=== PATIENT | female | born 1995 | race Caucasian/White ===

== ENCOUNTER → 2018-09-20 | Outpatient (CLI) | payer BC ==
--- NOTE | 2018-09-20 07:58 | CT ---
EXAMINATION TYPE: CT brain wo con DATE OF EXAM: 09/20/2018 COMPARISON: None. HISTORY: Frequent migraines. Strong family history of MS CT DLP: 945.5 mGycm. Automated Exposure Control for Dose Reduction was Utilized. TECHNIQUE: CT scan of the head is performed without contrast. FINDINGS: There is no acute intracranial hemorrhage, mass effect, or midline shift identified. The ventricles and sulci are within normal limits in size. Velarde-white matter differentiation is maintain ed. Craniocervical junction is preserved. There is partial visualization of opacified superior left m axillary sinus. There is opacity filling the anterior left ethmoid sinus. Remainder paranasal sinuses are clear. The globes are intact bilaterally. IMPRESSION: No acute intracranial hemorrhage or midline shift is seen. Acute left-sided sinus diseas e, correlate clinically.
== END | disposition home or self-care (01) ==
LOC: RADCTMAIN 07:25
PROVIDERS: ATTEND Family Medicine
DX: R51 Headache (principal)
CPT/HCPCS: 70450

== ENCOUNTER 2019-10-05 11:22 | Inpatient (IN) | payer BC ==
[2019-10-06] MEDS: LACTATED RINGERS 1,000 ML IV SCH ×3 (00:47→04:06)
[2019-10-06] MEDS ORDERED: OXYTOCIN 10 UNIT/ML 1 ML VIAL IM PRN (00:48)
[2019-10-06] MEDS ORDERED: TERBUTALINE 1 MG/ML VIAL SQ PRN (00:48)
[2019-10-06] MEDS ORDERED: METHYLERGONOVINE 0.2 MG/ML 1 ML AMP IM PRN (00:48)
[2019-10-06] MEDS ORDERED: CARBOPROST TROMETHAMINE 250 MCG/ML 1 ML AMP IM PRN (00:48)
[2019-10-06] MEDS ORDERED: LIDOCAINE 0.5% (PF) 5 MG/ML (50 ML SDV) SQ PRN (00:48)
[2019-10-06] MEDS ORDERED: PENICILLIN G POTASSIUM 5,000,000 UNIT in DEXTROSE 5% IN WATER 100 ML IVPB STA ×2 (00:48)
--- NOTE | 2019-10-06 00:54 | P.HPOB ---
History of Present Illness H&P Date: 10/06/19 Chief Complaint: IUP at 38 and 3/sevenths weeks, labor, spontaneous rupture of membranes This is a 24-year-old 1 para 0 at 38 and 3/sevenths weeks with an estimated due date of 10/14 based on last menstrual period that presents to labor and delivery with complaints of regular painful contractions, question leakage of fluid. Patient states she started lavelle around 2200. Patient noted some mucousy like discharge was concerned her water may have broken. Patient was a transfer of care from Dr. Damon at 35 weeks. care has been essentially uncomplicated. Patient notes good movement. On bloodwork patient has a blood type of O+, rubella status immune, RPR nonreactive, hepatitis B surface antigen negative, HIV negative, GBS is positive on 09/17. Review of Systems Constitutional: Denies chills, Denies fatigue, Denies fever Ears, nose, mouth and throat: Denies headache Cardiovascular: Denies leg edema Respiratory: Denies dyspnea Gastrointestinal: Denies constipation, Denies diarrhea, Denies nausea, Denies vomiting Genitourinary: Reports Exam Osteopathic Statement: *. No significant issues noted on an osteopathic structural exam other than those noted in the History and Physical/Consult. Targeted physical exam is performed in this date and household assistant a well-nourished well-developed female in no acute distress, breathing is noted to be nonlabored, heart has regular rate and rhythm, abdomen is gravid and appropriate for gestational age, heart tones returned be category 1 and she is lavelle every 5 minutes. Patient was known to be positive by RN, cervix after 1 hour of observation was noted to be 4/100/-1 station. Assessment and Plan (1) Term Current Visit: Yes Status: Acute Code(s): Z34.90 - ENCNTR FOR SUPRVSN OF NORMAL , UNSP, UNSP TRIMESTER SNOMED Code(s): 33567943 (2) Positive GBS test Current Visit: Yes Status: Acute Code(s): B95.1 - STREPTOCOCCUS, GROUP B, CAUSING DISEASES CLASSD ELSWHR SNOMED Code(s): 691593118 (3) Active labor Current Visit: Yes Status: Acute Code(s): YKP1437 - SNOMED Code(s): 832143743 (4) SROM (spontaneous rupture of membranes) Current Visit: Yes Status: Acute Code(s): GCT3847 - SNOMED Code(s): 051139486 Plan: This 24-year-old 1 para 0 at 38-3/7 weeks presents to labor and delivery with complaints of contractions and questionable rest para membranes. Patient is noted to be ruptured based on in nature. Patient is admitted to labor and delivery and is requesting epidural placement. Anesthesia has been notified. We'll monitor closely.
[2019-10-06] MEDS ORDERED: fentaNYL (PF) 50 MCG/ML 5 ML AMP ONE (01:00)
[2019-10-06] MEDS ORDERED: ROPIVACAINE 5MG/ML 20ML VIAL ONE (01:00)
[2019-10-06] MEDS ORDERED: SODIUM CHLORIDE 0.9% 100 ML BAG ONE (01:00)
[2019-10-06 01:06] LABS: Basophils % (A) 0 %; Eosinophils # (A) 0.2 k/uL (0-0.7); Eosinophils % (A) 1 %; HCT 43.2 % (34.0-46.0); HGB 14.8 gm/dL (11.4-16.0); Lymphocytes # (A) 2.6 k/uL (1.0-4.8); Lymphocytes % (A) 18 %; MCH 29.3 pg (25.0-35.0); MCHC 34.3 g/dL (31.0-37.0); MCV 85.5 fL (80.0-100.0); Mean Platelet Volume 8.5; Monocytes # (A) 0.7 k/uL (0-1.0); Monocytes % (A) 5 %; Neutrophils # (A) 10.7 k/uL (1.3-7.7); Neutrophils % (A) 75 %; Platelet Count 238 k/uL (150-450); RBC 5.06 m/uL (3.80-5.40); RDW 13.1 % (11.5-15.5); WBC 14.3 k/uL (3.8-10.6)
[2019-10-06] MEDS: PENICILLIN G POTASSIUM 2,500,000 UNIT in DEXTROSE 5% IN WATER 100 ML IVPB SCH ×4 (05:00→08:11)
[2019-10-06] MEDS ORDERED: ACETAMINOPHEN 40 MG/1.25 ML ORAL.SYRG PO PRN (07:25)
[2019-10-06] MEDS ORDERED: LIDOCAINE (PF) 10 MG/ML 2 ML VIAL SQ PRN (07:25)
[2019-10-06] MEDS ORDERED: SUCROSE 24% 2 ML AMP PO PRN (07:25)
--- NOTE | 2019-10-06 07:25 | P.PROBDLV ---
Vaginal Delivery Note - . Vaginal Delivery Note: This is a 24-year-old white female 1 para 0 EDC 10/16/2019 38-4/7 weeks' gestation. Patient presented to labor and delivery through the night in spontaneous active labor. has been unremarkable, positive group B strep cultures noted. Blood type O+. Please see dictated history and physical for details. Artificial amniorrhexis revealed clear fluid. Epidural was placed per her request. She progressed well through the first stage of labor and became completely dilated at 0620 hours. 2 doses of penicillin G had been received for penicillin G prophylaxis. Perineal body is prepped and draped in usual sterile fashion. With excellent maternal expulsive Efforts the infant's head delivered occiput anterior and restituted accordingly. There was no nuchal cord noted. The left or anterior shoulder was delivered from underneath the pubic symphysis at which time the oropharynx, nasopharynx, and external nares were all bulb suctioned on the perineum. Patient was officially delivered of a liveborn male infant at 0706 hrs. Umbilical cord is doubly clamped and ligated, he is handed to waiting nurses for evaluation where scores of 9 and 9 at one and 5 minutes respectively were given. Placenta delivers spontaneously, it is inspected and noted to be intact with trivascular cord at 0708 hrs. At this time the uterus is massaged. Careful inspection of the cervix, vagina, perineum, periurethral, and perirectal areas reveals a small first-degree midline laceration repaired in the usual fashion with a single [id number] suture of 3.0 Vicryl suture. Uterus is firm, midline, symmetric, 18 week size. All sponge needle and enhancement counts are correct at the end of the procedure. Patient is requesting circumcision for her son. Total estimated blood loss 250 mL's.
[2019-10-06] MEDS ORDERED: LANOLIN CREAM 5 GM TUBE TOPICAL PRN (07:28)
[2019-10-06] MEDS ORDERED: BENZOCAINE/MENTHOL SPRAY 1 GM/SPRAY AEROSOL TOPICAL PRN (07:28)
[2019-10-06] MEDS ORDERED: SIMETHICONE 80 MG CHEWABLE PO PRN (07:28)
[2019-10-06] MEDS ORDERED: diphenhydrAMINE 50 MG CAP PO PRN (07:28)
[2019-10-06] MEDS ORDERED: ZOLPIDEM 5 MG TAB PO PRN (07:28)
[2019-10-06] MEDS ORDERED: HYDROCORTISONE 2.5% RECTAL CREAM 30 GM TUBE RECTAL PRN (07:28)
[2019-10-06] MEDS ORDERED: IBUPROFEN 600 MG TAB PO PRN (07:28)
[2019-10-06] MEDS ORDERED: diphenhydrAMINE 25 MG CAP PO PRN (07:28)
[2019-10-06] MEDS ORDERED: diphenhydrAMINE 50 MG/ML 1 ML VIAL IVP PRN ×2 (07:28)
[2019-10-06] MEDS ORDERED: OXYTOCIN 20 UNITS/1000 ML NS 1,000 ML IV SCH (07:30)
[2019-10-06] MEDS: SENNOSIDES-DOCUSATE SODIUM 1 EACH TAB PO SCH ×2 (08:11→19:42)
[2019-10-06] MEDS: ACETAMINOPHEN TAB 325 MG TAB PO PRN ×2 (09:47→19:38)
[2019-10-07 06:27] LABS: Basophils % (A) 0 %; Eosinophils # (A) 0.2 k/uL (0-0.7); Eosinophils % (A) 1 %; HCT 39.3 % (34.0-46.0); HGB 13.7 gm/dL (11.4-16.0); Lymphocytes # (A) 2.7 k/uL (1.0-4.8); Lymphocytes % (A) 23 %; MCHC 34.8 g/dL (31.0-37.0); MCV 86.3 fL (80.0-100.0); Mean Platelet Volume 8.3; Monocytes # (A) 0.5 k/uL (0-1.0); Monocytes % (A) 4 %; Neutrophils # (A) 8.3 k/uL (1.3-7.7); Neutrophils % (A) 70 %; Platelet Count 184 k/uL (150-450); RBC 4.56 m/uL (3.80-5.40); RDW 13.3 % (11.5-15.5); WBC 11.8 k/uL (3.8-10.6)
[2019-10-07 08:23] VITALS: BP 117/76; PULSE 75; RESP 14; TEMP 98.7
[2019-10-07] MEDS: SENNOSIDES-DOCUSATE SODIUM 1 EACH TAB PO SCH (08:25)
--- NOTE | 2019-10-07 10:46 | P.DS ---
Providers Date of admission: 10/06/19 00:25 Expected date of discharge: 10/07/19 Attending physician: Pao Yang Primary care physician: Stated None - Discharge Diagnosis(es) (1) Active labor Current Visit: Yes Status: Acute (2) Positive GBS test Current Visit: Yes Status: Acute (3) SROM (spontaneous rupture of membranes) Current Visit: Yes Status: Acute (4) Term Current Visit: Yes Status: Acute (5) Normal spontaneous vaginal delivery Current Visit: Yes Status: Acute (6) Perineal laceration with delivery, first degree Current Visit: Yes Status: Acute Hospital Course: This is a 24-year-old 1 now para 1 woman who presented at 38-4/7 weeks gestation in spontaneous active labor. She is group B strep positive and received prophylactic antibiotics. She underwent artificial rupture of me mbranes and received an epidural anesthetic. She went on to deliver a liveborn male infant over a first 3 perineal laceration with Apgars of 9 at 1 minute and 9 at 5 minutes. The patient's course was unremarkable. By day #1 she was ambulating and voiding without difficulty. Her lochia was moderate. Her pain was well-controlled. She is tolerating a general diet and her vital signs were stable. She was therefore discharged home in routine instructions for care and follow-up. Patient Condition at Discharge: Good Plan - Discharge Summary New Discharge Prescriptions: No Action No Known Home Medications Discharge Medication List No Known Home Medications 10/06/19 [History] Follow up Appointment(s)/Referral(s): Pao Yang MD [STAFF PHYSICIAN] - 6 Weeks Activity/Diet/Wound Care/Special Instructions: Follow-up in the office in 6 weeks . Call with any concerning signs or symptoms including heavy vaginal bleeding, severe abdominal pain, fever greater than 101, swelling or redness of the lower extremities, foul vaginal discharge, or signs of depression. Nothing in the vagina for 6 weeks after delivery, specifically no intercourse. May use [id number] ibuprofen and/or Tylenol as needed for pain Discharge Disposition: HOME SELF-CARE
== END 2019-10-07 12:30 | disposition home or self-care (01) | DRG 807 ==
LOC: FBPOP 11:22 → 4FBP 10-06 00:25
PROVIDERS: ADMIT Obstetrics & Gynecology Obstetrics; ATTEND Obstetrics & Gynecology
PROC: 3E0R3BZ Introduction of Anesthetic Agent into Spinal Canal, Percutaneous Approach (ICD-10-PCS; principal; 2019-10-06)
PROC: 00HU33Z Insertion of Infusion Device into Spinal Canal, Percutaneous Approach (ICD-10-PCS; principal; 2019-10-06)
PROC: 10E0XZZ Delivery of Products of Conception, External Approach (ICD-10-PCS; principal; 2019-10-06)
PROC: 0HQ9XZZ Repair Perineum Skin, External Approach (ICD-10-PCS; principal; 2019-10-06)
DX: O99.824 Streptococcus B carrier state complicating childbirth (principal); Z37.0 Single live birth; Z3A.38 38 weeks gestation of pregnancy; O70.0 First degree perineal laceration during delivery
CPT/HCPCS: 59025; 84112; 85025; 86850; 86900; 86901; 99213

== ENCOUNTER 2020-09-10 08:50 | Inpatient (IN) | payer BC ==
[2020-09-10] MEDS ORDERED: METHYLERGONOVINE 0.2 MG/ML 1 ML AMP IM PRN (09:08)
[2020-09-10] MEDS ORDERED: TERBUTALINE 1 MG/ML VIAL SQ PRN (09:08)
[2020-09-10] MEDS ORDERED: PENICILLIN G POTASSIUM 5,000,000 UNIT in DEXTROSE 5% IN WATER 100 ML IVPB STA ×2 (09:08)
[2020-09-10] MEDS ORDERED: LIDOCAINE 0.5% (PF) 5 MG/ML (50 ML SDV) SQ PRN (09:08)
[2020-09-10] MEDS ORDERED: CARBOPROST TROMETHAMINE 250 MCG/ML 1 ML AMP IM PRN (09:08)
[2020-09-10] MEDS ORDERED: OXYTOCIN 10 UNIT/ML 1 ML VIAL IM PRN (09:08)
[2020-09-10] MEDS ORDERED: OXYTOCIN 30 UNITS/500 ML NS 30 UNIT in SALINE 1 500ML.BAG IV SCH (09:15)
[2020-09-10] MEDS: LACTATED RINGERS 1,000 ML IV SCH ×2 (09:29→16:01)
[2020-09-10 09:55] LABS: Basophils % (A) 0 %; Eosinophils # (A) 0.2 k/uL (0-0.7); Eosinophils % (A) 2 %; HCT 36.6 % (34.0-46.0); HGB 12.9 gm/dL (11.4-16.0); Lymphocytes # (A) 2.3 k/uL (1.0-4.8); Lymphocytes % (A) 21 %; MCH 28.6 pg (25.0-35.0); MCHC 35.3 g/dL (31.0-37.0); MCV 80.9 fL (80.0-100.0); Mean Platelet Volume 7.7; Monocytes # (A) 0.7 k/uL (0-1.0); Monocytes % (A) 7 %; Neutrophils # (A) 7.6 k/uL (1.3-7.7); Neutrophils % (A) 70 %; Platelet Count 243 k/uL (150-450); Poikilocytosis Slight; RBC 4.53 m/uL (3.80-5.40); RDW 11.9 % (11.5-15.5); WBC 10.9 k/uL (3.8-10.6)
--- NOTE | 2020-09-10 10:01 | P.HPOB ---
History of Present Illness H&P Date: 09/10/20 This is a 25-year-old female 2 para 1001 EDC 10/08/2020 at 36 weeks' gestation. Patient presents after being in the office, reporting that her water broke last night at 10:00, clear fluid. She is having no uterine contractions. Spontaneous amniorrhexis was confirmed in the office with positive nitrazine, positive pooling, positive ferning. Past obstetric history significant for blood type O positive, rubella status immune. Urine culture, hepatitis B surface antigen, HIV testing, gonorrhea and chlamydia cultures all negative. One-hour Glucola 86. Rupee strep cultures not done. Past medical history is essentially negative. Past surgical history eye muscle surgery at age 3. Current medications vitamins daily. ALLERGIES none known, ALLERGIES to eggs cinnamon is noted. Family history significant for hypertension, epilepsy, MS. Social history patient is single, she works for [email or web address], she denies alcohol tobacco or drug use. On exam patient is 5 foot 1 inch, 160 pounds, blood pressure on admission 132/69. General physical exam is within normal limits. Chest is clear in all wilder. Cervix at office was 2 cm dilated, 50%, -2 station, vertex presentation, soft, anterior. heart rate is consistent with reactive NST. Impression: 36 week intrauterine , spontaneous amniorrhexis last night, not in labor. Group B strep culture status unknown. Plan: We will begin penicillin G prophylaxis. Oxytocin augmentation per hospital protocol. Close maternal and surveillance. Anticipate normal spontaneous vaginal delivery. Review of Systems Constitutional: Reports as per HPI Past Medical History Past Medical History: No Reported History Additional Past Medical History / Comment(s): UTIs History of Any Multi-Drug Resistant Organisms: None Reported Additional Past Surgical History / Comment(s): Eye surgery at 3 years old Past Anesthesia/Blood Transfusion Reactions: No Reported Reaction Past Psychological History: Anxiety Smoking Status: Never smoker Past Alcohol Use History: None Reported Past Drug Use History: None Reported - Past Family History Sister(s) Family Medical History: Neurologic Disorder, Seizure Disorder Additional Family Medical History / Comment(s): spinabifida Mother Family Medical History: Musculoskeletal Disorder Medications and Allergies Home Medications Medication Instructions Recorded Confirmed Type Pnv 11/Iron Fum/Folic Acid/Om3 1 each PO DAILY 09/10/20 09/10/20 History [Virt-Eddie Dha Softgel] Allergies Allergy/AdvReac Type Severity Reaction Status Date / Time cinnamon Allergy Anaphylaxis Verified 10/06/19 00:52 egg AdvReac Itching Verified 10/06/19 00:52 Exam Vital Signs Temp Pulse Resp BP Pulse Ox 09/10/20 09:06 99.5 F 101 H 18 132/69 100 Intake and Output 09/09/20 09/10/20 09/10/20 22:59 06:59 14:59 Other: Weight 72.575 kg See dictation under HPI please Results Result Diagrams: 09/10/20 09:29 Abnormal Lab Results - Last 24 Hours (Table) 09/10/20 Range/Units 09:29 WBC 10.9 H (3.8-10.6) k/uL Assessment and Plan Assessment: 36 weeks intrauterine , spontaneous amniorrhexis last night, not in active labor. Group B strep cultures unknown. Others otherwise signs reassuring. Plan: Penicillin G prophylaxis per protocol. First dose given. Oxytocin augmentation per hospital protocol. Continue close maternal and surveillance. Anticipate normal spontaneous vaginal delivery. Time with Patient: Less than 30
[2020-09-10] MEDS: PENICILLIN G POTASSIUM 2,500,000 UNIT in DEXTROSE 5% IN WATER 100 ML IVPB SCH ×6 (13:49→21:16)
[2020-09-10] MEDS ORDERED: SODIUM CHLORIDE 0.9% 100 ML BAG ONE ×2 (15:39→21:54)
[2020-09-10] MEDS ORDERED: ROPIVACAINE 5MG/ML 20ML VIAL ONE (15:39)
[2020-09-10] MEDS ORDERED: fentaNYL (PF) 50 MCG/ML 5 ML AMP ONE (15:39)
[2020-09-10] MEDS ORDERED: HYDROmorphone (PF) 1 MG/ML ONE (21:54)
[2020-09-10] MEDS ORDERED: MORPHINE SULFATE (PF) 0.3 MG/0.3 ML SYR ONE (21:54)
[2020-09-10] MEDS ORDERED: KETOROLAC 15 MG/ML 1 ML VIAL ONE (21:54)
[2020-09-10] MEDS ORDERED: ceFAZolin 1,000 MG VIAL ONE (21:54)
[2020-09-10] MEDS ORDERED: ONDANSETRON 4 MG/2 ML VIAL ONE (21:54)
[2020-09-10] MEDS ORDERED: diphenhydrAMINE 25 MG CAP PO PRN (22:46)
[2020-09-10] MEDS ORDERED: diphenhydrAMINE 50 MG/ML 1 ML VIAL IVP PRN ×2 (22:46)
[2020-09-10] MEDS ORDERED: METOCLOPRAMIDE 5 MG/ML 2 ML VIAL IVP PRN (22:46)
[2020-09-10] MEDS ORDERED: diphenhydrAMINE 50 MG CAP PO PRN (22:46)
[2020-09-10] MEDS ORDERED: ZOLPIDEM 5 MG TAB PO PRN (22:46)
[2020-09-10] MEDS ORDERED: NALOXONE 0.4 MG/ML 1 ML VIAL IV PRN (22:46)
[2020-09-10] MEDS ORDERED: ONDANSETRON 4 MG/2 ML VIAL IVP PRN (22:46)
--- NOTE | 2020-09-10 22:46 | P.OP ---
Date of Procedure: 09/10/20 Preoperative Diagnosis: 36 week , arrest of dilation and descent. Prolonged rupture of membranes, development of tachycardia. Undesired fertility Postoperative Diagnosis: Liveborn female infant, left occiput transverse position, nuchal cord 2. Procedure(s) Performed: Primary low transverse section, tubal ligation with Filshie clips Anesthesia: epidural Surgeon: Pao Yang [employer] #1: [employer] Estimated Blood Loss (ml): 500 IV fluids (ml): 800 Urine output (ml): 200 Pathology: other (Placenta) Condition: stable Disposition: PACU Description of Procedure: Patient presented to the office in the morning with history of spontaneous rupture membranes the night before. Fluid was noted to be clear. Cervix 2 cm dilated. She was sent to labor and delivery where oxytocin was started and titrated, up to 21 milliunits. Arrestive dilation occurred at 5 cm, maternal fever occurred and subsequent tachycardia. Decision was made to proceed with primary low transverse section. Patient's request for tubal ligation was noted. Patient is brought to the operating room where the epidural previously placed was topped off. 2 g of Kefzol are given. She is placed in the dorsal supine position with left lateral uterine displacement. Marsh catheter placed to direct drainage, vaginal prep was performed. The appropriate timeout was also done to assure proper patient and procedural identification. The abdomen is prepped and draped in usual sterile fashion. Analgesia is checked and noted to be adequate. A low transverse skin incision is made in this is carried down through the subcutaneous tissue to the fascia. Fascia is isolated, scored, extended bilaterally with curved Gates scissors. Peritoneum is next identified and incised, there is no bowel or bladder involvement. Bladder flap is created and at all times the bladder is Well from the operative field to avoid bladder and/or ureteral injury. A low transverse uterine incision is made in this is extended bluntly. 's head is delivered in the occiput transverse position. There is a nuchal cord 2 that was tight and reduced. Patient is officially delivered of a liveborn femal e infant at 2210 hours. Umbilical cord is doubly clamped and ligated, she is handed to waiting nurses for evaluation where scores of 6 and 8 at one and 5 minutes respectively are given. Placentas delivered manually, it is inspected and noted to be intact with trivascular cord at 2210 hours. The uterus is then externalized and massaged. It is swept clean with a sterile sponge to avoid any retained products of conception. It is closed in a single full-thickness stitch of 0 Vicryl suture. Excellent hemostasis is noted. Patient's request for tubal ligation is once again confirmed. Filshie clips are placed in the isthmic portion of the tubes bilaterally with care to traverse the entire diameter of the tubes into the mesal salpinx. Imbricated ends of the tubes are visualized for proper placement. Ovaries appear normal. Abdomen is now suctioned with suction on guard posterior to the uterus. Uterus is gently placed back into the abdominal cavity. Bilateral gutters are inspected and cleaned. Bladder flap was allowed to close by secondary intention. Uterine incision is clean and dry. Fascia is closed in a running stitch of 0 Vicryl with over ligation in the midline. Subcutaneous tissue is irrigated, clean and dry. It is reapproximated with 3-0 Vicryl in a running stitch. 4-0 undyed Vicryl issues for final skin closure. All sponge needle and enhancement counts are correct. The incision is dressed properly. Marsh is noted to be draining clear urine. Patient is brought back to recovery room in very good condition with stable vital signs including blood pressure 97/52, pulse 94, 98% O2 saturation.
[2020-09-10] MEDS ORDERED: LACTATED RINGERS 1,000 ML IV SCH (23:00)
[2020-09-10] MEDS: KETOROLAC 15 MG/ML 1 ML VIAL IVP SCH (23:34)
[2020-09-11] MEDS ORDERED: IBUPROFEN 600 MG TAB PO SCH (05:00)
[2020-09-11] MEDS: KETOROLAC 15 MG/ML 1 ML VIAL IVP SCH (05:18)
[2020-09-11] MEDS: SIMETHICONE 80 MG CHEWABLE PO PRN ×2 (05:19→19:35)
[2020-09-11 06:18] LABS: Basophils % (A) 0 %; Eosinophils # (A) 0.1 k/uL (0-0.7); Eosinophils % (A) 1 %; HCT 33.2 % (34.0-46.0); HGB 11.8 gm/dL (11.4-16.0); Lymphocytes # (A) 1.8 k/uL (1.0-4.8); Lymphocytes % (A) 13 %; MCH 28.9 pg (25.0-35.0); MCHC 35.5 g/dL (31.0-37.0); MCV 81.6 fL (80.0-100.0); Mean Platelet Volume 7.7; Monocytes # (A) 1.2 k/uL (0-1.0); Monocytes % (A) 8 %; Neutrophils # (A) 11.4 k/uL (1.3-7.7); Neutrophils % (A) 78 %; Platelet Count 194 k/uL (150-450); Poikilocytosis Slight; RBC 4.07 m/uL (3.80-5.40); WBC 14.7 k/uL (3.8-10.6)
[2020-09-11] MEDS: SENNOSIDES-DOCUSATE SODIUM 1 EACH TAB PO SCH ×2 (07:34→19:35)
[2020-09-11] MEDS: ACETAMINOPHEN TAB 500 MG TAB PO SCH ×4 (07:34→19:34)
--- NOTE | 2020-09-11 08:04 | P.PN ---
Subjective Progress Note Date: 09/11/20 Principal diagnosis: Postoperative day #1 Positive flatus. Minimal pain. Patient reports fatigue. Objective - Vital Signs Vital signs: Vital Signs Temp 98.3 F 09/11/20 04:00 Pulse 81 09/11/20 04:00 Resp 16 09/11/20 04:00 BP 130/72 09/11/20 04:00 Pulse Ox 99 09/10/20 23:49 Intake & Output 09/10/20 09/11/20 09/11/20 18:59 06:59 18:59 Output Total 1600 Balance -1600 Weight 72.575 kg Output: Urine 1100 Uretheral (Marsh) 700 Estimated Blood Loss 500 Other: # Voids 1 - Constitutional General appearance: Present: average body habitus, cooperative - EENT Eyes: Present: PERRLA ENT: Present: hearing grossly normal - Neck Neck: Present: normal ROM - Respiratory Respiratory: bilateral: CTA - Cardiovascular Rhythm: regular - Gastrointestinal Gastrointestinal Comment(s): Fundus firm, midline, symmetric, 18 week size. General gastrointestinal: Present: normal bowel sounds - Integumentary Integumentary: Present: normal turgor - Neurologic Neurologic: Present: CNII-XII intact - Musculoskeletal Musculoskeletal: Present: gait normal - Psychiatric Psychiatric: Present: A&O x's 3, appropriate affect, intact judgment & insight - Labs CBC & Chem 7: 09/11/20 05:42 Labs: Abnormal Lab Results - Last 24 Hours (Table) 09/10/20 09/11/20 Range/Units 09:29 05:42 WBC 10.9 H 14.7 H (3.8-10.6) k/uL Hct 33.2 L (34.0-46.0) % Neutrophils # 11.4 H (1.3-7.7) k/uL Monocytes # 1.2 H (0-1.0) k/uL Assessment and Plan Assessment: Doing well postoperative day #1 Plan: Continue postoperative care. Likely discharge home tomorrow. Advanced diet and activity, switched to oral medications for pain. Time with Patient: Less than 30
[2020-09-11] MEDS: IBUPROFEN 600 MG TAB PO SCH ×2 (16:27→23:21)
[2020-09-11 20:02] VITALS: RESP 16
[2020-09-12] MEDS: ACETAMINOPHEN TAB 500 MG TAB PO SCH (05:22)
--- NOTE | 2020-09-12 07:49 | P.DS ---
Providers Date of admission: 09/10/20 08:50 Expected date of discharge: 09/12/20 Attending physician: Pao Yang Primary care physician: Stated None Hospital Course: This is a 25-year-old white female 2 para 1001 EDC 10/08/2020 at 36 weeks' gestation. Patient presented to the office for her routine obstetrical visit at which time she mentioned that she broke her water the night prior. She was sent to the hospital for induction. Oxytocin was started, penicillin G started per protocol. White count on admission 10.9, heart rate reassuring. Please see admitting history and physical for details. Patient progressed and dilated to 5 cm at which time she had an arrest of dilatation. She spiked a low-grade fever and heart rate increased to the 160s to 170s baseline. Decision was made to proceed with primary low transverse section. She gave to a liveborn female infant with scores of 6 and 8 at one and 5 minutes respectively. Baby weighed 6 lbs. 0 oz. or 2730 g. Estimated blood loss 500 mL's. Tubal ligation was performed per her request utilizing Filshie clips. Please see dictated operative note for details. This 20 the patient is doing well. She is voiding, ambulate in, passing flatus without difficulty. Vital signs are stable and she is afebrile. Fundus is firm and in the midline, symmetric and 18 week size. Extremities are negative for edema. infant was transferred to [facility] on oxygen, patient states baby is doing well. Patient is anxious for discharge home. Incision is clean and dry, intact, Steri-Strips applied. Fundus is firm, midlin e, symmetric, 16 week size. Extremities are negative for edema. Breasts are not engorged. A she is not breast-feeding. Her chest is clear in all wilder. She is judged to be in good condition for discharge home. She will follow-up with me in the office in 2 weeks for incision check. She is reminded no intercourse, tampons or douching. She will use [id number] Advil or Aleve, or Motrin as needed for pain. She will call with any fevers shakes or chills, foul smelling or copious lochia, with the passage of large blood clots, with any pain not alleviated by [id number] products, or indeed with any concerns. Proper incisional care is reviewed. Assessment: Doing well second postoperative day Patient Condition at Discharge: Good Plan - Discharge Summary Discharge Rx Participant: No New Discharge Prescriptions: No Action Pnv 11/Iron Fum/Folic Acid/Om3 [Virt-Eddie Dha Softgel] 1 each PO DAILY Discharge Medication List Pnv 11/Iron Fum/Folic Acid/Om3 [Virt-Eddie Dha Softgel] 1 each PO DAILY 09/10/20 [History] Follow up Appointment(s)/Referral(s): Pao Yang MD [STAFF PHYSICIAN] - 2 Weeks Discharge Disposition: HOME SELF-CARE
[2020-09-12 08:41] VITALS: BP 113/72; PULSE 90; TEMP 98.1
== END 2020-09-12 08:45 | disposition home or self-care (01) | DRG 785 ==
LOC: 4FBP 08:50
PROVIDERS: ADMIT Obstetrics & Gynecology; ATTEND Obstetrics & Gynecology
PROC: 0UB70ZZ Excision of Bilateral Fallopian Tubes, Open Approach (ICD-10-PCS; 2020-09-10)
PROC: 10D00Z1 Extraction of Products of Conception, Low, Open Approach (ICD-10-PCS; principal; 2020-09-10 22:10)
DX: O62.0 Primary inadequate contractions (principal); O62.1 Secondary uterine inertia; O69.81X0 Labor and delivery complicated by cord around neck, without compression, not applicable or unspecified; O76 Abnormality in fetal heart rate and rhythm complicating labor and delivery; O99.344 Other mental disorders complicating childbirth; F41.9 Anxiety disorder, unspecified; Z37.0 Single live birth; Z3A.36 36 weeks gestation of pregnancy; Z82.49 Family history of ischemic heart disease and other diseases of the circulatory system; Z82.0 Family history of epilepsy and other diseases of the nervous system; Z30.2 Encounter for sterilization
CPT/HCPCS: 85025; 86850; 86900; 86901; 88307

== ENCOUNTER 2022-02-23 21:08 | Emergency (ER) | payer BC, MEDICAID ==
[2022-02-23 22:14] VITALS: TEMP 97.9
--- NOTE | 2022-02-23 23:02 | ED ---
Eye Problem HPI - General Chief complaint: Eye Problems Stated complaint: swollen rt eye Time Seen by Provider: 02/23/22 23:01 Source: patient Mode of arrival: ambulatory Limitations: no limitations - Related Data Home Medications Medication Instructions Recorded Confirmed Pnv 11/Iron Fum/Folic Acid/Om3 1 each PO DAILY 09/10/20 09/10/20 [Virt-Eddie Dha Softgel] Allergies Allergy/AdvReac Type Severity Reaction Status Date / Time cinnamon Allergy Anaphylaxis Verified 02/23/22 22:14 egg AdvReac Itching Verified 02/23/22 22:14 Review of Systems ROS Statement: Those systems with pertinent positive or pertinent negative responses have been documented in the HPI. ROS Other: All systems not noted in ROS Statement are negative. Past Medical History Past Medical History: No Reported History Additional Past Medical History / Comment(s): UTIs History of Any Multi-Drug Resistant Organisms: None Reported Additional Past Surgical History / Comment(s): Eye surgery at 3 years old Past Anesthesia/Blood Transfusion Reactions: No Reported Reaction Past Psychological History: Anxiety Smoking Status: Never smoker Past Alcohol Use History: None Reported Past Drug Use History: None Reported - Past Family History Sister(s) Family Medical History: Neurologic Disorder, Seizure Disorder Additional Family Medical History / Comment(s): spinabifida Mother Family Medical History: Musculoskeletal Disorder General Exam Limitations: no limitations Course Vital Signs 02/23/22 22:08 Temperature 97.9 F Pulse Rate 82 Respiratory 20 Rate Blood Pressure 117/77 O2 Sat by Pulse 99 Oximetry Disposition Clinical Impression: Hyphema, Edema of right eyelid Disposition: HOME SELF-CARE Condition: Good Instructions (If sedation given, give patient instructions): Hyphema (ED) Is patient prescribed a controlled substance at d/c from ED?: No Referrals: Addi Short MD [STAFF PHYSICIAN] - 1-2 days Time of Disposition: 23:50
--- NOTE | 2022-02-23 23:41 | CT ---
EXAMINATION TYPE: CT brain wo con, CT facial bones wo con DATE OF EXAM: 02/23/2022 COMPARISON: CT brain September 20, 2018 HISTORY: swelling and bruising to right eye. Hitting injury CT DLP: 1291.5 mGycm. Automated Exposure Control for Dose Reduction was Utilized. TECHNIQUE: CT scan of the head and facial bones are performed without contrast. FINDINGS: There is no acute intracranial hemorrhage, mass effect, or midline shift identified. The ventricles and sulci are within normal limits in size. Ortiz-white matter differentiation is maintai siómn. The calvarium is intact. The mandible is intact. The temporomandibular joints are maintained bilaterally. There is mild to mod erate fat stranding and soft tissue swelling over the right orbit axial image 61 for reference. The o rbital floors and jose are intact. The globes are intact bilaterally. Intraconal fat is preserved. T he zygomatic arches are intact. The mandible is intact. The pterygoid plates are intact. Nasal bones are intact. Nasal septum slightly deviated to right of midline anteriorly. The paranasal sinuses are clear. Round lucent lesion right first incisor root coronal image 18 favors a nonaggressive etiology. No well-formed fluid collection or abscess is seen. IMPRESSION: 1. No acute intracranial hemorrhage or midline shift is seen. 2. Mild to moderate preseptal right sided cellulitis. No postseptal extension. No acute displaced fac ial bone fracture.
[2022-02-23 23:56] VITALS: BP 129/77; PULSE 74; RESP 15
[2022-02-24] MEDS ORDERED: POLYMYXIN B-TRIMETHOPRIM SULF (10,000-1) OPHTH DROPS 10 ML BTL RIGHT EYE SCH
== END 2022-02-24 00:09 | disposition home or self-care (01) ==
LOC: EC 21:08
DX: H21.01 Hyphema, right eye (principal); F41.9 Anxiety disorder, unspecified; Z91.018 Allergy to other foods; Z91.012 Allergy to eggs
CPT/HCPCS: 70450; 70486; 99283

== ENCOUNTER → 2022-06-18 | Outpatient (CLI) | payer MEDICAID ==
[2022-06-19 00:42] LABS: C Reactive Protein <0.30 mg/dL (0.00-0.80); Creatine Kinase 60 U/L (26-186); Uric Acid 3.4 mg/dL (2.9-7.7)
[2022-06-19 01:06] LABS: Hepatitis B Surface Antigen Nonreactive (Nonreactive); Hepatitis C IgG Antibody Nonreactive (Nonreactive)
[2022-06-19 03:30] LABS: Appearance,Urine Clear (Clear); Bilirubin,Urine Negative (Negative); Blood,Urine Negative (Negative); Color,Urine Yellow (Yellow); Ketones,Urine Negative (Negative); Nitrite,Urine Negative (Negative); PH, Urine 6.5 (5.0-8.0); Specific Gravity,Urine 1.015 (1.001-1.030)
[2022-06-19 04:05] LABS: Cyclic Citrull Pep IgG Unit <1.5 U/mL; Cyclic Citrullinated Pep IgG NEGATIVE (NEGATIVE)
[2022-06-19 04:30] LABS: Cardiolipin Ab IgG Interp NEGATIVE (NEGATIVE); Cardiolipin Ab IgM Interp NEGATIVE (NEGATIVE); Cardiolipin IgM Antibody <1.5 U/mL; DNA Double-Stranded POSITIVE (NEGATIVE)
[2022-06-19 09:01] LABS: Angiotensin-1 Converting Enz. 31 U/L (8-52)
[2022-06-19 13:18] LABS: HLA B27 POSITIVE
[2022-06-19 13:38] LABS: APTT 44 Sec(s) (<43); APTT 1:1 Mix 38 Sec(s) (<43); Dilute Russell Viper Venom 39 Sec(s) (<44)
[2022-06-19 14:25] LABS: Free Kappa Lt Chain Qnt, Serum 1.61 mg/dL (0.33-1.94); Free Lambda Lt Chain Qnt, Seru 1.19 mg/dL (0.57-2.63)
[2022-06-19 14:57] LABS: C-ANCA <1:20 Titer (<1:20)
[2022-06-19 14:59] LABS: Albumin 4.32 g/dL (3.80-4.90); Gamma Globulin 1.06 g/dL (0.70-1.50)
== END | disposition home or self-care (01) ==
LOC: LABWHC1 12:27
PROVIDERS: ATTEND Internal Medicine Rheumatology
DX: Z11.59 Encounter for screening for other viral diseases (principal); R76.8 Other specified abnormal immunological findings in serum; E55.9 Vitamin D deficiency, unspecified
CPT/HCPCS: 36415; 81003; 82164; 82306; 82550; 83520; 83883; 84165; 84550; 85613; 85652; 85730; 86038; 86039; 86140; 86147; 86160; 86162; 86200; 86225; 86255; 86334; 86803; 86812; 87340

== ENCOUNTER → 2022-06-30 | Outpatient (CLI) | payer MEDICAID ==
[2022-06-30 15:48] LABS: Basophils # (A) 0.04 X 10*3/uL (0.00-0.10); Basophils % (A) 0.7 %; Eosinophils # (A) 0.17 X 10*3/uL (0.04-0.35); Eosinophils % (A) 2.8 %; HCT 45.1 % (37.2-46.3); HGB 14.9 g/dL (12.0-15.0); Immature Grans, Automated 0.5 %; Lymphocytes # (A) 1.82 X 10*3/uL (0.90-5.00); Lymphocytes % (A) 29.7 %; MCV 87.9 fL (80.0-97.0); Mean Platelet Volume 9.9 fL (9.5-12.2); Monocytes # (A) 0.36 X 10*3/uL (0.20-1.00); Monocytes % (A) 5.9 %; NRBC Per 100 WBC 0 /100 WBCS (0.0-0.0); Neutrophils # (A) 3.71 X 10*3/uL (1.80-7.70); Neutrophils % (A) 60.4 %; Platelet Count 333 X 10*3/uL (140-440); RBC 5.13 X 10*6/uL (4.10-5.20); RDW 12.6 % (11.5-14.5); WBC 6.13 X 10*3/uL (4.50-10.00)
[2022-06-30 16:29] LABS: African American GFR (CKD) 125.8 (60.0-200.0); Albumin 4.5 g/dL (3.8-4.9); Albumin/Globulin Ratio 1.84 (1.60-3.17); BUN/Creat Ratio 11.84 Ratio (12.00-20.00); Blood Urea Nitrogen 8.9 mg/dL (9.0-27.0); Calcium 9.3 mg/dL (8.7-10.3); Carbon Dioxide 23.7 mmol/L (20.0-27.5); Globulin 2.5 g/dL (1.6-3.3); Non-African American GFR(CKD) 108.5 (60.0-200.0); Potassium 4.3 mmol/L (3.5-5.5); T4, Free (Free Thyroxine) 1.24 ng/dL (0.800-1.800); Total Bilirubin 1.2 mg/dL (0.30-1.20)
== END | disposition home or self-care (01) ==
LOC: LABWHC1 11:15
PROVIDERS: ATTEND Nurse Practitioner Acute Care
DX: E55.9 Vitamin D deficiency, unspecified (principal); E53.9 Vitamin B deficiency, unspecified; G43.909 Migraine, unspecified, not intractable, without status migrainosus; H53.9 Unspecified visual disturbance; R42 Dizziness and giddiness
CPT/HCPCS: 36415; 80053; 82306; 82607; 84207; 84439; 84443; 84481; 85025

== ENCOUNTER 2023-07-14 17:47 | Emergency (ER) | payer MEDICAID ==
[2023-07-14 18:02] VITALS: RESP 18
[2023-07-14] MEDS: ONDANSETRON ODT 4 MG TAB PO STA (18:29)
[2023-07-14] MEDS: IBUPROFEN 800 MG TAB PO STA (18:30)
--- NOTE | 2023-07-14 18:30 | ED ---
General Adult HPI - General Chief complaint: Recheck/Abnormal Lab/Rx Stated complaint: Urogenital Time Seen by Provider: 07/14/23 17:58 Source: patient, RN notes reviewed Mode of arrival: ambulatory Limitations: no limitations - History of Present Illness Initial comments: This is a 28-year-old female presents emergency department chief complaint of increase in urinary frequency, urgency. She has also been endorsing symptoms of hematuria, left-sided back pain and suprapubic tenderness over the past 5 days. States that she has tried increasing oral hydration and cranberry juice with relief. Patient denies fevers, diarrhea, constipation, history of nephrolithiasis or pyelonephritis. Patient's last menstrual cycle was 06/19/23 and underwent tubal ligation surgery in the past. She has taken acetaminophen yesterday with normal white home medications taken today. - Related Data Home Medications Medication Instructions Recorded Confirmed Pnv 11/Iron Fum/Folic Acid/Om3 1 each PO DAILY 09/10/20 09/10/20 [Virt-Eddie Dha Softgel] Previous Rx's Medication Instructions Recorded Ondansetron Odt [Zofran Odt] 4 mg PO Q8HR PRN #10 tab 07/14/23 Sulfamethox-Tmp 800-160Mg [Bactrim 1 each PO Q12HR #28 tab 07/14/23 Ds] Allergies Allergy/AdvReac Type Severity Reaction Status Date / Time cinnamon Allergy Anaphylaxis Verified 02/23/22 22:14 egg AdvReac Itching Verified 02/23/22 22:14 Review of Systems ROS Statement: Those systems with pertinent positive or pertinent negative responses have been documented in the HPI. ROS Other: All systems not noted in ROS Statement are negative. Past Medical History Past Medical History: No Reported History Additional Past Medical History / Comment(s): UTIs History of Any Multi-Drug Resistant Organisms: None Reported Additional Past Surgical History / Comment(s): Eye surgery at 3 years old Past Anesthesia/Blood Transfusion Reactions: No Reported Reaction Past Psychological History: Anxiety Smoking Status: Never smoker Past Alcohol Use History: None Reported Past Drug Use History: Marijuana - Past Family History Sister(s) Family Medical History: Neurologic Disorder, Seizure Disorder Additional Family Medical History / Comment(s): spinabifida Mother Family Medical History: Musculoskeletal Disorder General Exam Limitations: no limitations General appearance: alert, in no apparent distress Head exam: Present: atraumatic, normocephalic, normal inspection Eye exam: Present: normal appearance, PERRL, EOMI. Absent: scleral icterus, conjunctival injection, periorbital swelling ENT exam: Present: normal exam, mucous membranes moist Neck exam: Present: normal inspection. Absent: tenderness, meningismus, lymphadenopathy Respiratory exam: Present: normal lung sounds bilaterally. Absent: respiratory distress, wheezes, rales, rhonchi, stridor Cardiovascular Exam: Present: regular rate, normal rhythm, normal heart sounds. Absent: systolic murmur, diastolic murmur, rubs, gallop, clicks GI/Abdominal exam: Present: soft, tenderness (suprapubic and mid abdomen), normal bowel sounds. Absent: distended, guarding, rebound, rigid Extremities exam: Present: normal inspection, full ROM, normal capillary refill. Absent: tenderness, pedal edema, joint swelling, calf tenderness Back exam: Present: normal inspection, CVA tenderness (L) Neurological exam: Present: alert, oriented X3, CN II-XII intact Psychiatric exam: Present: normal affect, normal mood Skin exam: Present: warm, dry, intact, normal color. Absent: rash Course Vital Signs 07/14/23 07/14/23 17:48 19:18 Temperature 98.1 F 98.4 F Pulse Rate 100 89 Respiratory 18 18 Rate Blood Pressure 126/65 125/86 O2 Sat by Pulse 100 100 Oximetry Medical Decision Making - Medical Decision Making Was pt. sent in by a medical professional or institution (, [facility], APPLICATION DEVELOPER MANAGER, urgent care, hospital, or residential...) When possible be specific @ -No Did you speak to anyone other than the patient for history (EMS, parent, family, police, friend...)? What history was obtained from this source @ -No Did you review nursing and triage notes (agree or disagree)? Why? @ -I reviewed and agree with nursing and triage notes Were old charts reviewed (outside hosp., previous admission, EMS record, old EKG, old radiological studies, urgent care reports/EKG's, residential records)? Report findings @ -No old charts were reviewed Differential Diagnosis (chest pain, altered mental status, abdominal pain women, abdominal pain men, vaginal bleeding, weakness, fever, dyspnea, syncope, headache, dizziness, GI bleed, back pain, seizure, CVA, palpatations, mental health, musculoskeletal)? @ -Differential Abdominal Pain Women: Appendicitis, Cholecystitis, diverticulosis, ischemic bowel, pancreatitis, hepatitis, UTI, gastroenteritis, AAA, incarcerated hernia, bowel obstruction, constipation, inflammatory bowel, hepatitis, peptic ulcer disease, splenic infarction, perforated viscus, vulvitis, ovarian torsion, PID, kidney stone, placenta abruption, this is not meant to be an all-inclusive list EKG interpreted by me (3pts min.). @ -None X-rays interpreted by me (1pt min.). @ -None done CT interpreted by me (1pt min.). @ -None done U/S interpreted by me (1pt. min.). @ -Ultrasound of the kidneys renal and bladder reveals minimal left hydronephrosis. What testing was considered but not performed or refused? (CT, X-rays, U/S, labs)? Why? @ -None What meds were considered but not given or refused? Why? @ -None Did you discuss the management of the patient with other professionals (professionals i.e. , PA, APPLICATION DEVELOPER MANAGER, lab, RT, psych nurse, web content & social media manager, dock worker, teacher, navigating officer, director of casework services)? Give summary @ -No Was smoking cessation discussed for >3mins.? @ -No Was critical care preformed (if so, how long)? @ -No Were there social determinants of health that impacted care today? How? (Homelessness, low income, unemployed, alcoholism, drug addiction, transportation, low edu. Level, literacy, decrease access to med. care, [facility], rehab)? @ -No Was there de-escalation of care discussed even if they declined (Discuss DNR or withdrawal of care, Hospice)? DNR status @ -No What co-morbidities impacted this encounter? (DM, HTN, Smoking, COPD, CAD, Cancer, CVA, ARF, Chemo, Hep., AIDS, mental health diagnosis, sleep apnea, morbid obesity)? @ -None Was patient admitted / discharged? Hospital course, mention meds given and route, prescriptions, significant lab abnormalities, going to OR and other pertinent info. @ -28-year-old female with urinary symptoms. On examination patient noted to have suprapubic tenderness on palpation in addition to left-sided flank pain. Patient's urinalysis consistent with cystitis including cloudy appearance, moderate blood, large leukocyte esterase, 46 white blood cells. renal ultrasound reveals minimal left-sided hydronephrosis with no evidence for renal cysts masses or nephrolithiasis. At this time patient will be discharged home with oral antibiotics to cover for urinary tract infection and potential pyelonephritis. Urine will also be sent for culture. All questions answered at bedside. Strict return parameters also the patient. Recommend that she follow- up with her primary care provider after antibiotics are completed for further evaluation of urinalysis. Case discussed with Dr. Manzo Undiagnosed new problem with uncertain prognosis? @ -No Drug Therapy requiring intensive monitoring for toxicity (Heparin, Nitro, Insulin, Cardizem)? @ -No Were any procedures done? @ -No Diagnosis/symptom? @ -cystitis, pyelonephritis Acute, or Chronic, or Acute on Chronic? @ -acute Uncomplicated (without systemic symptoms) or Complicated (systemic symptoms)? @ -uncomplicated Side effects of treatment? @ -No Exacerbation, Progression, or Severe Exacerbation? @ -No Poses a threat to life or bodily function? How? (Chest pain, [place], [place], pneumonia, PE, COPD, DKA, ARF, appy, cholecystitis, CVA, Diverticulitis, Homicidal, Suicid al, threat to staff... and all critical care pts) @ -No - Lab Data Lab Results 07/14/23 07/14/23 Range/Units 18:15 18:15 Urine Color Colorless Urine Appearance Cloudy H (Clear) Urine pH 7.0 (5.0-8.0) Ur Specific [place] 1.012 (1.001-1.035) Urine Protein Negative (Negative) Urine Glucose (UA) Negative (Negative) Urine Ketones Negative (Negative) Urine Blood Moderate H (Negative) Urine Nitrite Negative (Negative) Urine Bilirubin Negative (Negative) Urine Urobilinogen 4.0 (<2.0) mg/dL Ur Leukocyte Esterase Large H (Negative) Urine RBC 3 (0-5) /hpf Urine WBC 46 H (0-5) /hpf Ur Squamous Epith Cells 4 (0-4) /hpf Urine Bacteria Few H (None) /hpf Urine Mucus Rare H (None) /hpf Urine HCG, Qual Not Detected (Not Detectd) Disposition Clinical Impression: Pyelonephritis, Cystitis Narrative: Please return to the Emergency Department if symptoms worsen or any other concerns. Complete full course of antibiotics as prescribed. Follow-up with your primary care provider after completion of antibiotics. Disposition: HOME SELF-CARE Condition: Good Instructions (If sedation given, give patient instructions): Urinary Tract Infection in Women (DC), Kidney Infection (ED) Prescriptions: Sulfamethox-Tmp 800-160Mg [Bactrim Ds] 1 each PO Q12HR #28 tab Ondansetron Odt [Zofran Odt] 4 mg PO Q8HR PRN #10 tab PRN Reason: Nausea Is patient prescribed a controlled substance at d/c from ED?: No Referrals: Boy David MD [Primary Care Provider] - 1-2 days Time of Disposition: 19:03
--- NOTE | 2023-07-14 18:39 | US ---
EXAMINATION TYPE: US kidneys/renal and bladder DATE OF EXAM: 07/14/2023 COMPARISON: NONE CLINICAL INDICATION: Female, 28 years old with history of hematuria, left flank and back pain; hematu rashid, bilateral flank pain, worse on left side per pt EXAM MEASUREMENTS: Right Kidney: 10.1 x 4.4 x 4.1 cm Left Kidney: 12.3 x 5.3 x 4.8 cm Right Kidney: No hydronephrosis or masses seen Left Kidney: Mild left hydronephrosis. Bladder: Mostly empty, appears wnl Bilateral Jets seen: No No right hydronephrosis. No renal masses identified. Minimal left hydronephrosis suggested. No nephro lithiasis is seen. No masses are identified. The urinary bladder is anechoic. Bilateral ureteral j ets are not seen. IMPRESSION: Minimal left hydronephrosis suggested.
[2023-07-14 18:52] LABS: Appearance,Urine Cloudy (Clear); Bacteria,Urine Few /hpf; Bilirubin,Urine Negative (Negative); Blood,Urine Moderate (Negative); Color,Urine Colorless; Glucose,Urine (UA) Negative (Negative); Ketones,Urine Negative (Negative); Leukocyte Esterase,Urine Large (Negative); Mucus,Urine Rare /hpf; Nitrite,Urine Negative (Negative); Protein,Urine Negative (Negative); RBC,Urine 3 /hpf (0-5); Specific Gravity,Urine 1.012 (1.001-1.035); Squamous Epithelial Cell,Urine 4 /hpf (0-4); WBC,Urine 46 /hpf (0-5)
[2023-07-14 19:58] VITALS: BP 125/86; PULSE 89; TEMP 98.4
== END 2023-07-14 19:25 | disposition home or self-care (01) ==
LOC: EC 17:47
DX: N13.6 Pyonephrosis (principal); N30.90 Cystitis, unspecified without hematuria; F12.90 Cannabis use, unspecified, uncomplicated; Z91.018 Allergy to other foods; Z91.012 Allergy to eggs
CPT/HCPCS: 76770; 81001; 81025; 87077; 87086; 87186; 99284

== ENCOUNTER → 2023-08-12 | Outpatient (CLI) | payer MEDICAID, OTHER ==
--- NOTE | 2023-08-20 23:23 | MR ---
EXAMINATION TYPE: MR lumbar spine wo/w con DATE OF EXAM: 08/12/2023 COMPARISON: NONE HISTORY: 28-year-old female Chronic back pain. M51.36 DISC DEGENERATION, LUMBAR REGION Technique: Multiplanar, multisequence images of the lumbar spine were obtained before and after admin istration of 8 mL intravenous Gadavist gadolinium contrast. FINDINGS: Very minimal early intervertebral disc desiccation L3-L4 and L4-L5. Minimal disc bulging L4-L5. No la rge focal disc herniation or significant spinal canal stenosis. No abnormal enhancement within the spinal canal. No significant neuroforaminal stenosis. Vertebral body heights are preserved and alignment is maintained. No suspicious bone marrow replacement. Conus medullaris is normal. Incidental gallstones measuring up to 1 cm. IMPRESSION: 1. Very minimal early degenerative disc disease L3-L4 and L4-L5. No focal disc herniation or signific ant spinal canal stenosis. 2. No neuroforaminal stenosis. 3. Incidental cholelithiasis.
== END | disposition home or self-care (01) ==
LOC: RADMRIMAIN 11:16
PROVIDERS: ATTEND Family Medicine
DX: M51.36 Other intervertebral disc degeneration, lumbar region (principal); K80.20 Calculus of gallbladder without cholecystitis without obstruction
CPT/HCPCS: 72158; A9585

== ENCOUNTER 2023-12-20 18:09 | Emergency (ER) | payer OTHER ==
[2023-12-20 18:46] VITALS: TEMP 98.9
--- NOTE | 2023-12-20 19:22 | ED ---
Chest Pain HPI - General Chief Complaint: Chest Pain Stated Complaint: Chest Pain Time Seen by Provider: 12/20/23 18:25 Source: patient, RN notes reviewed Mode of arrival: ambulatory Limitations: no limitations - History of Present Illness Initial Comments: This is a 28-year-old female with a history of asthma and lupus arthritis who presents emergency department chief complaint of chest pain and pleuritic chest pain that has been intermittent since Wednesday. States that sometimes the pain will be rated as a 3 out of 10 and others will be an 8 out of 10. States that she has pain on inspiration as well. She denies fevers, chills, nausea, vomiting, cough, rhinorrhea, congestion. Patient states that she used her nebulizer yesterday. Denies history of blood clots or clotting disorders, calf pain, history of DVT or PE, or recent prolonged travel. - Related Data Home Medications Medication Instructions Recorded Confirmed Pnv 11/Iron Fum/Folic Acid/Om3 1 each PO DAILY 09/10/20 09/10/20 [Virt-Eddie Dha Softgel] Previous Rx's Medication Instructions Recorded Ondansetron Odt [Zofran Odt] 4 mg PO Q8HR PRN #10 tab 07/14/23 Sulfamethox-Tmp 800-160Mg [Bactrim 1 each PO Q12HR #28 tab 07/14/23 Ds] Allergies Allergy/AdvReac Type Severity Reaction Status Date / Time cinnamon Allergy Anaphylaxis Verified 12/20/23 18:46 egg AdvReac Itching Verified 12/20/23 18:46 Review of Systems ROS Statement: Those systems with pertinent positive or pertinent negative responses have been documented in the HPI. ROS Other: All systems not noted in ROS Statement are negative. Past Medical History Past Medical History: No Reported History Additional Past Medical History / Comment(s): UTIs History of Any Multi-Drug Resistant Organisms: None Reported Additional Past Surgical History / Comment(s): Eye surgery at 3 years old Past Anesthesia/Blood Transfusion Reactions: No Reported Reaction Past Psychological History: Anxiety Smoking Status: Never smoker Past Alcohol Use History: None Reported Past Drug Use History: Marijuana - Past Family History Sister(s) Family Medical History: Neurologic Disorder, Seizure Disorder Additional Family Medical History / Comment(s): spinabifida Mother Family Medical History: Musculoskeletal Disorder General Exam - General Exam Comments Initial Comments: Visual Physical Exam Vital signs reviewed General: Well-appearing, nontoxic, no acute distress. Head: Normocephalic, atraumatic Eyes: PERRLA, EOMI ENT: Airway patent Chest: Nonlabored breathing Skin: No visual rash, normal skin tone Neuro: Alert and oriented 3 Musculoskeletal: No gross abnormalities Limitations: no limitations General appearance: alert, in no apparent distress ENT exam: Present: normal exam, mucous membranes moist Neck exam: Present: normal inspection. Absent: tenderness, meningismus, lymphadenopathy Respiratory exam: Present: normal lung sounds bilaterally. Absent: respiratory distress, wheezes, rales, rhonchi, stridor Cardiovascular Exam: Present: regular rate, normal rhythm, normal heart sounds. Absent: systolic murmur, diastolic murmur, rubs, gallop, clicks GI/Abdominal exam: Present: soft, normal bowel sounds. Absent: distended, tenderness, guarding, rebound, rigid Extremities exam: Present: normal inspection, full ROM, normal capillary refill. Absent: tenderness, pedal edema, joint swelling, calf tenderness Back exam: Present: normal inspection Neurological exam: Present: alert, oriented X3, CN II-XII intact Skin exam: Present: warm, dry, intact, normal color. Absent: rash Course Vital Signs 12/20/23 12/20/23 12/20/23 18:42 21:11 21:23 Temperature 98.9 F Pulse Rate 86 82 80 Respiratory 20 Rate Blood Pressure 91/58 O2 Sat by Pulse 100 Oximetry 12/20/23 12/20/23 21:28 23:03 Temperature Pulse Rate 90 90 Respiratory 18 16 Rate Blood Pressure 111/70 113/70 O2 Sat by Pulse 100 100 Oximetry Chest Pain MDM - MDM Was pt. sent in by a medical professional or institution (, PA, TICKET DISPENSER CHANGER, urgent care, hospital, or assisted...) When possible be specific @ -No Did you speak to anyone other than the patient for history (EMS, parent, family, police, friend...)? What history was obtained from this source @ -No Did you review nursing and triage notes (agree or disagree)? Why? @ -I reviewed and agree with nursing and triage notes Were old charts reviewed (outside hosp., previous admission, EMS record, old EKG, old radiological studies, urgent care reports/EKG's, assisted records)? Report findings @ -No old charts were reviewed Differential Diagnosis (chest pain, altered mental status, abdominal pain women, abdominal pain men, vaginal bleeding, weakness, fever, dyspnea, syncope, headache, dizziness, GI bleed, back pain, seizure, CVA, palpatations, mental health, musculoskeletal)? @ -Differential Chest Pain: Stable Angina, Unstable Angina, STEMI, NSTEMI Aortic Dissection, Pneumothorax, Musculoskeletal, Esophageal Spasm GERD, Cholecystitis, Pancreatitis, Zoster, this is not meant to be an all-inclusive list. EKG interpreted by me (3pts min.). @ -Completed at 1839 sinus rhythm with a ventricular rate of 89, ND interval 180, QRS 88, QTc 415. No acute signs of ischemia. X-rays interpreted by me (1pt min.). @ -Chest x-ray interpreted by me no acute cardiopulmonary process or disease. CT interpreted by me (1pt min.). @ -None done U/S interpreted by me (1pt. min.). @ -None done What testing was considered but not performed or refused? (CT, X-rays, U/S, labs)? Why? @ -None What meds were considered but not given or refused? Why? @ -None Did you discuss the management of the patient with other professionals (professionals i.e. , PA, TICKET DISPENSER CHANGER, lab, RT, psych nurse, psychiatric social worker supervisor, head of partner development, teacher, wildlife conservation officer, showcase trimmer)? Give summary @ -No Was smoking cessation discussed for >3mins.? @ -No Was critical care preformed (if so, how long)? @ -No Were there social determinants of health that impacted care today? How? (Homelessness, low income, unemployed, alcoholism, drug addiction, transportation, low edu. Level, literacy, decrease access to med. care, [facility] [facility], rehab)? @ -No Was there de-escalation of care discussed even if they declined (Discuss DNR or withdrawal of care, Hospice)? DNR status @ -No What co-morbidities impacted this encounter? (DM, HTN, Smoking, COPD, CAD, Cancer, CVA, ARF, Chemo, Hep., AIDS, mental health diagnosis, sleep apnea, morbid obesity)? @ -None Was patient admitted / discharged? Hospital course, mention meds given and route, prescriptions, significant lab abnormalities, going to OR and other pertinent info. @ -28-year-old female chest pain. On my evaluation the patient she is resting comfortably no signs of acute distress. Vitals are stable. CBC, CMP, coagulation profile within normal limits, D-dimer not elevated at 0.29, amylase and lipase within normal limits. Troponin nonelevated, Cepheid negative. Patient's chest x-ray negative. Patient's heart score is 0 she does not have history of hypertension, diabetes, high cholesterol. Patient has been no clinical concern for adverse cardiac event to occur in the next few weeks and she is stable for follow-up outpatient with primary care provider. Additionally, patient symptoms align with pleurisy as symptoms arise with inspiration and is described as a pain in her lower chest. Recommend that patient contact her primary care provider to schedule appointment this week for further evaluation. Recommend that she continue to use nebulized breathing treatment at home as well. All questions answered at bedside and strict return parameters cesar with the patient she is verbalized understanding. Case discussed with Dr. Suh Undiagnosed new problem with uncertain prognosis? @ -No Drug Therapy requiring intensive monitoring for toxicity (Heparin, Nitro, Insulin, Cardizem)? @ -No Were any procedures done? @ -No Diagnosis/symptom? @ -pleurisy, chest pain Acute, or Chronic, or Acute on Chronic? @ -Acute Uncomplicated (without systemic symptoms) or Complicated (systemic symptoms)? @ -uncomplicated Side effects of treatment? @ -No Exacerbation, Progression, or Severe Exacerbation? @ -No Poses a threat to life or bodily function? How? (Chest pain, [place], [place], pneumonia, PE, COPD, DKA, ARF, appy, cholecystitis, CVA, Diverticulitis, Homicidal, Suicidal, threat to staff... and all critical care pts) @ -No Disposition Clinical Impression: Pleurisy Disposition: HOME SELF-CARE Condition: Good Instructions (If sedation given, give patient instructions): Pleurisy (ED) Additional Instructions: Return to the emergency department for any new or worsening symptoms. Recommend you contact your primary care provider in the morning to schedule appointment this week for further evaluation. Is patient prescribed a controlled substance at d/c from ED?: No Referrals: Boy David MD [Primary Care Provider] - 1-2 days Time of Disposition: 22:50
[2023-12-20 19:46] LABS: Basophils % (A) 1 %; Eosinophils # (A) 0.1 k/uL (0-0.7); Eosinophils % (A) 2 %; HCT 46.3 % (34.0-46.0); HGB 15.4 gm/dL (11.4-16.0); Lymphocytes # (A) 1.1 k/uL (1.0-4.8); Lymphocytes % (A) 18 %; MCH 28.7 pg (25.0-35.0); MCHC 33.3 g/dL (31.0-37.0); MCV 86.2 fL (80.0-100.0); Mean Platelet Volume 7.3; Monocytes # (A) 0.4 k/uL (0-1.0); Monocytes % (A) 5 %; Neutrophils # (A) 4.6 k/uL (1.3-7.7); Neutrophils % (A) 72 %; Platelet Count 292 k/uL (150-450); RBC 5.37 m/uL (3.80-5.40); RDW 12.2 % (11.5-15.5); WBC 6.4 k/uL (3.8-10.6)
[2023-12-20 20:01] LABS: INR 0.9 (<1.2); Prothrombin Time 9.9 sec (10.0-12.5)
[2023-12-20 20:04] LABS: ALT 18 U/L (4-34); AST 26 U/L (14-36); African American GFR (CKD) >90 (>60 ml/min/1.73 sqM); Albumin 4.7 g/dL (3.5-5.0); Alkaline Phosphatase 54 U/L (38-126); Amylase 76 U/L (30-110); Anion Gap 11 mmol/L; Blood Urea Nitrogen 10 mg/dL (7-17); Calcium 9.4 mg/dL (8.4-10.2); Carbon Dioxide 21 mmol/L (22-30); Chloride 107 mmol/L (98-107); Glucose 92 mg/dL (74-99); Lipase 112 U/L (23-300); Magnesium 2.1 mg/dL (1.6-2.3); Non-African American GFR(CKD) >90 (>60 ml/min/1.73 sqM); Sodium 139 mmol/L (137-145); Total Bilirubin 1.8 mg/dL (0.2-1.3); Total Protein 7.7 g/dL (6.3-8.2)
[2023-12-20] MEDS: IPRATROPIUM-ALBUTEROL 3 ML NEB INHALATION STA (21:11)
[2023-12-20 21:29] VITALS: PULSE 90
[2023-12-20 23:03] VITALS: BP 113/70; RESP 16
--- NOTE | 2023-12-21 02:47 | XR ---
EXAMINATION TYPE: XR chest 2V DATE OF EXAM: 12/20/2023 7:32 PM CLINICAL INDICATION:Female, 28 years old with history of Chest Pain; [facility] COMPARISON: None TECHNIQUE: XR chest 2V. Frontal and lateral views of the chest.. FINDINGS: Lines/Tubes/Devices: No indwelling lines are seen. Heart/mediastinum: Heart size is normal. Mediastinum appears normal. Pulmonary vascularity: Not increased, Lungs/Pleura: There is no evidence of pleural effusion, focal consolidation, or pneumothorax. Musculoskeletal: No acute osseous abnormality demonstrated in the limits of the exam. Trace S-shaped scoliosis suggested. Other findings: None. IMPRESSION: No acute cardiopulmonary abnormality. [facility], , 12/21/2023 2:45 AM
== END 2023-12-20 23:58 | disposition home or self-care (01) ==
LOC: EC 18:09
CPT/HCPCS: 36415; 71046; 80053; 82150; 83690; 83735; 84484; 85025; 85379; 85610; 85730; 87636; 93005; 94640; 99285

== ENCOUNTER 2024-05-02 09:24 | Emergency (ER) | payer OTHER ==
[2024-05-02 09:28] VITALS: BP 135/78; PULSE 100
--- NOTE | 2024-05-02 10:27 | ED ---
General Adult HPI - General Chief complaint: Upper Respiratory Infection Stated complaint: FEVER,WENDY,VOMITING Time Seen by Provider: 05/02/24 09:26 Source: patient, RN notes reviewed, old records reviewed Mode of arrival: ambulatory Limitations: no limitations - History of Present Illness Initial comments: 29-year-old female presenting with fever, cough, congestion, sore throat and bodyaches. Patient's family members are sick with similar illnesses. She has had some mild associated nausea as well. Patient took Tylenol prior to arrival. - Related Data Home Medications Medication Instructions Recorded Confirmed Pnv 11/Iron Fum/Folic Acid/Om3 1 each PO DAILY 09/10/20 09/10/20 [Virt-Eddie Dha Softgel] Previous Rx's Medication Instructions Recorded Ondansetron Odt [Zofran Odt] 4 mg PO Q8HR PRN #10 tab 07/14/23 Sulfamethox-Tmp 800-160Mg [Bactrim 1 each PO Q12HR #28 tab 07/14/23 Ds] Oseltamivir [Tamiflu] 75 mg PO Q12HR #10 cap 05/02/24 Allergies Allergy/AdvReac Type Severity Reaction Status Date / Time cinnamon Allergy Anaphylaxis Verified 05/02/24 09:28 egg AdvReac Itching Verified 05/02/24 09:28 Review of Systems ROS Statement: Those systems with pertinent positive or pertinent negative responses have been documented in the HPI. ROS Other: All systems not noted in ROS Statement are negative. Past Medical History Past Medical History: No Reported History Additional Past Medical History / Comment(s): UTIs History of Any Multi-Drug Resistant Organisms: None Reported Additional Past Surgical History / Comment(s): Eye surgery at 3 years old Past Anesthesia/Blood Transfusion Reactions: No Reported Reaction Past Psychological History: Anxiety Smoking Status: Never smoker Past Alcohol Use History: None Reported Past Drug Use History: Marijuana - Past Family History Sister(s) Family Medical History: Neurologic Disorder, Seizure Disorder Additional Family Medical History / Comment(s): spinabifida Mother Family Medical History: Musculoskeletal Disorder General Exam Limitations: no limitations General appearance: alert, in no apparent distress Head exam: Present: atraumatic, normocephalic Eye exam: Present: normal appearance, PERRL ENT exam: Present: mucous membranes moist Neck exam: Present: normal inspection. Absent: tenderness, meningismus Respiratory exam: Present: normal lung sounds bilaterally. Absent: respiratory distress, wheezes Cardiovascular Exam: Present: regular rate, normal rhythm Neurological exam: Present: alert, oriented X3, CN II-XII intact. Absent: motor sensory deficit Psychiatric exam: Present: normal affect, normal mood Skin exam: Present: warm, dry, intact. Absent: cyanosis, diaphoretic Course Vital Signs 05/02/24 09:25 Temperature 98.8 F Pulse Rate 100 Respiratory 20 Rate Blood Pressure 135/78 O2 Sat by Pulse 97 Oximetry Medical Decision Making - Medical Decision Making Was pt. sent in by a medical professional or institution (, SYDNIE, ADVERTISING SALES MANAGER, urgent care, hospital, or detention...) When possible be specific @ -No Did you speak to anyone other than the patient for history (EMS, parent, family, police, friend...)? What history was obtained from this source @ -No Did you review nursing and triage notes (agree or disagree)? Why? @ -I reviewed and agree with nursing and triage notes Were old charts reviewed (outside hosp., previous admission, EMS record, old EKG, old radiological studies, urgent care reports/EKG's, detention records)? Report findings @ -No old charts were reviewed Differential Diagnosis: Viral URI, influenza, pneumonia, strep pharyngitis EKG interpreted by me (3pts min.). @ -As above X-rays interpreted by me (1pt min.). @ -None done CT interpreted by me (1pt min.). @ -None done U/S interpreted by me (1pt. min.). @ -None done What testing was considered but not performed or refused? (CT, X-rays, U/S, labs)? Why? @ -None What meds were considered but not given or refused? Why? @ -None Did you discuss the management of the patient with other professionals (professionals i.e. SYDNIE Vicente, ADVERTISING SALES MANAGER, lab, RT, psych nurse, aids social worker, rn lpn lvn, teacher, wildlife officer, field nurse case manager)? Give summary @ -No Was smoking cessation discussed for >3mins.? @ -No Was critical care preformed (if so, how long)? @ -No Were there social determinants of health that impacted care today? How? (Homelessness, low income, unemployed, alcoholism, drug addiction, transportation, low edu. Level, literacy, decrease access to med. care, intermediate, rehab)? @ -No Was there de-escalation of care discussed even if they declined (Discuss DNR or withdrawal of care, Hospice)? DNR status @ -No What co-morbidities impacted this encounter? (DM, HTN, Smoking, COPD, CAD, Cancer, CVA, ARF, Chemo, Hep., AIDS, mental health diagnosis, sleep apnea, morbid obesity)? @ -None Was patient admitted / discharged? Hospital course, mention meds given and route, prescriptions, significant lab abnormalities, going to OR and other pertinent info. @ -29-year-old female with a 2-day history of cough, congestion, sore throat, myalgia, flulike illness testing positive for influenza A. Patient will be started on Tamiflu and should follow-up closely with her primary care provider. Undiagnosed new problem with uncertain prognosis? @ -No Drug Therapy requiring intensive monitoring for toxicity (Heparin, Nitro, Insulin, Cardizem)? @ -No Were any procedures done? @ -No Diagnosis/symptom? @Influenza Acute, or Chronic, or Acute on Chronic? @ -Acute Uncomplicated (without systemic symptoms) or Complicated (systemic symptoms)? @ -Default Side effects of treatment? @ -No Exacerbation, Progression, or Severe Exacerbation? @ -No Poses a threat to life or bodily function? How? (Chest pain, USA, MS, pneumonia, PE, COPD, DKA, ARF, appy, cholecystitis, CVA, Diverticulitis, Homicidal, Suicidal, threat to staff... and all critical care pts) @ -No - Lab Data Lab Results 05/02/24 Range/Units 09:36 Influenza Type A (PCR) Detected A (Not Detectd) Influenza Type B (PCR) Not Detected (Not Detectd) RSV (PCR) Not Detected (Not Detectd) SARS-CoV-2 (PCR) Not Detected (Not Detectd) Disposition Clinical Impression: Influenza Disposition: HOME SELF-CARE Condition: Fair Instructions (If sedation given, give patient instructions): Influenza (ED) Prescriptions: Oseltamivir [Tamiflu] 75 mg PO Q12HR #10 cap Is patient prescribed a controlled substance at d/c from ED?: No Referrals: Boy David MD [Primary Care Provider] - 1-2 days Time of Disposition: 10:30
[2024-05-02 10:28] LABS: Influenza A Detected (Not Detectd); Influenza B Not Detected (Not Detectd); RSV Not Detected (Not Detectd)
[2024-05-02 10:45] VITALS: RESP 19; TEMP 98.9
== END 2024-05-02 10:40 | disposition home or self-care (01) ==
LOC: EC 09:24
DX: J10.1 Influenza due to other identified influenza virus with other respiratory manifestations (principal); Z91.012 Allergy to eggs; Z91.048 Other nonmedicinal substance allergy status
CPT/HCPCS: 87636; 99284

== ENCOUNTER 2024-06-04 21:22 | Emergency (ER) | payer OTHER ==
[2024-06-04 21:33] VITALS: RESP 18
--- NOTE | 2024-06-04 21:52 | ED ---
Skin/Abscess/FB HPI - General Chief complaint: Skin/Abscess/Foreign Body Stated complaint: left middle finger swelling - infection Time Seen by Provider: 06/04/24 21:38 Source: patient, RN notes reviewed Mode of arrival: ambulatory Limitations: no limitations - History of Present Illness Initial comments: This is a 29-year-old female who presents to the emergency department for a left finger infection. Patient states that she noticed swelling to the tip of her left middle finger a few days ago, but it seems to be getting worse. She went to urgent care today and they started her on Keflex. They recommended draining the area, however she declined at that time. They advised that if this got worse tonight she should come in for evaluation. Denies any fevers/chills. - Related Data Home Medications Medication Instructions Recorded Confirmed Pnv 11/Iron Fum/Folic Acid/Om3 1 each PO DAILY 09/10/20 09/10/20 [Virt-Eddie Dha Softgel] Previous Rx's Medication Instructions Recorded Ondansetron Odt [Zofran Odt] 4 mg PO Q8HR PRN #10 tab 07/14/23 Sulfamethox-Tmp 800-160Mg [Bactrim 1 each PO Q12HR #28 tab 07/14/23 Ds] Oseltamivir [Tamiflu] 75 mg PO Q12HR #10 cap 05/02/24 Sulfamethox-Tmp 800-160Mg [Bactrim 1 tab PO Q12HR 10 Days #20 tab 06/04/24 DS 800-160 mg] Allergies Allergy/AdvReac Type Severity Reaction Status Date / Time cinnamon Allergy Anaphylaxis Verified 06/04/24 21:33 egg AdvReac Itching Verified 06/04/24 21:33 Review of Systems ROS Statement: Those systems with pertinent positive or pertinent negative responses have been documented in the HPI. ROS Other: All systems not noted in ROS Statement are negative. Past Medical History Past Medical History: No Reported History Additional Past Medical History / Comment(s): Lupus, UTIs History of Any Multi-Drug Resistant Organisms: None Reported Additional Past Surgical History / Comment(s): Eye surgery at 3 years old Past Anesthesia/Blood Transfusion Reactions: No Reported Reaction Past Psychological History: Anxiety Smoking Status: Never smoker Past Alcohol Use History: None Reported Past Drug Use History: Marijuana - Past Family History Sister(s) Family Medical History: Neurologic Disorder, Seizure Disorder Additional Family Medical History / Comment(s): spinabifida Mother Family Medical History: Musculoskeletal Disorder General Exam Limitations: no limitations General appearance: alert, in no apparent distress Head exam: Present: atraumatic, normocephalic, normal inspection Respiratory exam: Present: normal lung sounds bilaterally. Absent: respiratory distress, wheezes, rales, rhonchi, stridor Cardiovascular Exam: Present: regular rate, normal rhythm Extremities exam: Present: other (Paronychia to the left middle finger with visible purulence) Neurological exam: Present: alert, oriented X3, CN II-XII intact Psychiatric exam: Present: normal affect, normal mood Course Vital Signs 06/04/24 21:32 Temperature 98.5 F Pulse Rate 15 L Respiratory 18 Rate Blood Pressure 100/68 O2 Sat by Pulse 98 Oximetry Procedures - Incision & Drainage Consent Obtained: verbal consent Indication: Paronychia Site: hand Size (cm): 1 Scalpel Used: #11 I&D Drainage Obtained: Pus, Blood Medical Decision Making - Medical Decision Making This is a 29-year-old female who presents to the emergency department for a left middle finger infection. Was pt. sent in by a medical professional or institution? @ -No Did you speak to anyone other than the patient for history? @ -No Did you review nursing and triage notes? @ -Yes, and I agree, it is accurate with regards to the patient's symptoms. Were old charts reviewed? @ -No Differential Diagnosis? @ -Paronychia, felon, abscess, cellulitis, tenosynovitis, osteomyelitis, this is not meant to be an all-inclusive list. EKG interpreted by me (3pts min.)? @ -Not obtained X-rays interpreted by me (1pt min.)? @ -Not obtained CT interpreted by me (1pt min.)? @ -Not obtained U/S interpreted by me (1pt. min.)? @ -Not obtained What testing was considered but not performed? (CT, X-rays, U/S, labs)? Why? @ -None What meds were considered but not given? Why? @ -None Did you discuss the management of the patient with other professionals? @ -No Did you reconcile home meds? @ -No Was smoking cessation discussed for >3mins.? @ -No Was critical care preformed (if so, how long)? @ -No Were there social determinants of health that impacted care today? How? (Homelessness, low income, unemployed, alcoholism, drug addiction, transportation, low edu. Level, literacy, decrease access to med. care, retirement, rehab)? @ -No Was there de-escalation of care discussed even if they declined? (Discuss DNR or withdrawal of care, Hospice)? @ -No What co-morbidities impacted this encounter? (DM, HTN, Smoking, COPD, CAD, Cancer, CVA, Hep., AIDS, mental health diagnosis, sleep apnea, morbid obesity)? @ -Lupus Was patient admitted / discharged? @ -Discharged. Physical examination consistent with a paronychia. Incision and drainage performed and a copious amount of purulent material was expressed. Bactrim prescribed to be taken in conjunction with the Keflex for MRSA coverage, especially given that the patient is immunocompromised. Advised she continue with warm compresses and follow-up with her primary care provider in the next couple of days for reevaluation. Patient discharged home in stable condition. Case discussed with ED attending Dr. Suh. Return precautions reviewed in depth, the patient is instructed to return to the emergency department with any new, worsening, or concerning symptoms. Patient verbalized understanding. Undiagnosed new problem with uncertain prognosis? @ -None Drug Therapy requiring intensive monitoring for toxicity (Heparin, Nitro, Insulin, Cardizem)? @ -None Were any procedures done? @ -Incision and drainage Diagnosis/symptom? @ -Paronychia Acute, or Chronic, or Acute on Chronic? @ -Acute Uncomplicated (without systemic symptoms) or Complicated (systemic symptoms)? @ -Uncomplicated Side effects of treatment? @ -None Exacerbation, Progression, or Severe Exacerbation] @ -Not applicable Poses a threat to life or bodily function? @ -No Disposition Clinical Impression: Paronychia Disposition: HOME SELF-CARE Instructions (If sedation given, give patient instructions): Paronychia (ED) Additional Instructions: Return to the emergency department with any new, worsening, or concerning symptoms. Take the Bactrim as prescribed for 10 days in conjunction with the Keflex you are prescribed. Continue to apply warm compresses. You can also try applying [id number] triple antibiotic ointment 3 times a day. Follow up with your primary care provider in 1-2 days. Prescriptions: Sulfamethox-Tmp 800-160Mg [Bactrim DS 800-160 mg] 1 tab PO Q12HR 10 Days #20 tab Is patient prescribed a controlled substance at d/c from ED?: No Referrals: Boy David MD [Primary Care Provider] - 1-2 days Time of Disposition: 23:00
[2024-06-04] MEDS: LIDOCAINE/EPINEPHR/TETRACAINE 5 ML BOTTLE TOPICAL ONE (21:53)
[2024-06-04] MEDS: SULFAMETHOX-TMP 800-160MG 1 EACH TAB PO STA (21:55)
[2024-06-04] MEDS: ACET/COD 300 MG/30 MG STARTER PACK 6 TAB BTL PO STA (22:48)
[2024-06-04] MEDS: BACITRACIN OINT 1 EACH PACKET TOPICAL ONE (22:48)
[2024-06-04 23:07] VITALS: BP 114/74; PULSE 83; TEMP 98.8
== END 2024-06-04 23:15 | disposition home or self-care (01) ==
LOC: EC 21:22
DX: L03.012 Cellulitis of left finger (principal); M32.9 Systemic lupus erythematosus, unspecified; Z91.012 Allergy to eggs; Z91.018 Allergy to other foods
CPT/HCPCS: 26010; 99283